=== PATIENT | female | born 1975 | race Caucasian/White ===

== ENCOUNTER → 2021-04-23 | Emergency (ER) | payer OTHER ==
[~2021-04-23] MED LIST: METOCLOPRAMIDE HCL INJECTION 10 MG/2 ML VIAL IVPUSH ONE; METOCLOPRAMIDE HCL INJECTION 10 MG/2 ML VIAL ONE; PROCHLORPERAZINE INJECTION 10 MG/2 ML VIAL IVPB ONE; PROCHLORPERAZINE INJECTION 10 MG/2 ML VIAL ONE; SODIUM CHLORIDE 0.9% 500 ML INFUS.BAG IV ONE
[2021-04-23 16:20] VITALS: BP 146/75; PULSE 58; TEMP 98.9; BMI 29.8
[2021-04-23 17:38] LABS: BASO % 1.5 % (0-2.0); EOS % 4.8 % (0-4.5); HEMATOCRIT 38.6 % (32.4-45.2); HEMOGLOBIN 12.4 GM/dl (10.7-15.3); LYMPH % 34.9 % (8-40); MCH 28.4 pg (25.7-33.7); MCHC 32.2 g/dl (32.0-36.0); MEAN CELL VOLUME 88.3 fl (80-96); MEAN PLT VOLUME 10.4 fl (7.5-11.1); MONO % 5.7 % (3.8-10.2); NEUT % 53.1 % (42.8-82.8); PLATELET COUNT 244 10^3/uL (134-434); RBC 4.37 M/mm3 (3.60-5.2); WHITE BLOOD COUNT 6.3 K/mm3 (4.0-10.8)
[2021-04-23 17:50] LABS: HCG,QUALITATIVE URINE Negative
[2021-04-23 17:53] LABS: ALBUMIN 3.7 g/dl (3.4-5.0); BILIRUBIN,TOTAL 1.2 mg/dl (0.2-1); CALCIUM 8.9 mg/dl (8.5-10); CREATININE 0.8 mg/dl (0.55-1.3); TOT PROT 6.9 g/dl (6.4-8.2)
== END | disposition home or self-care (01) ==
LOC: FER 16:07
PROC: 3E033GC Introduction of Other Therapeutic Substance into Peripheral Vein, Percutaneous Approach (ICD-10-PCS; principal; 2021-04-23)
PROC: 3E033GC Introduction of Other Therapeutic Substance into Peripheral Vein, Percutaneous Approach (ICD-10-PCS; 2021-04-23)
DX: R51.9 Headache, unspecified (principal)
CPT/HCPCS: 36415; 70450-TC; 80053; 81003; 81015; 83735; 84703; 85025; 99284-25

== ENCOUNTER 2023-09-26 16:48 | Emergency (ER) | payer OTHER ==
[2023-09-26] MEDS ORDERED: IBUPROFEN 600 MG TABLET (FP) PO ONE ×2 (17:00→17:07)
== END 2023-09-26 18:55 | disposition home or self-care (01) ==
LOC: FER 16:48
PROC: 2W3RX1Z Immobilization of Left Lower Leg using Splint (ICD-10-PCS; principal; 2023-09-26)
DX: M25.572 Pain in left ankle and joints of left foot (principal); S82.832A Other fracture of upper and lower end of left fibula, initial encounter for closed fracture; X50.1XXA Overexertion from prolonged static or awkward postures, initial encounter; W01.0XXA Fall on same level from slipping, tripping and stumbling without subsequent striking against object, initial encounter
CPT/HCPCS: 73610-TC-LT-FY; 73630-TC-LT; 99283-25